=== PATIENT | male | born 1950 | race Caucasian/White ===

== ENCOUNTER 2016-08-18 17:53 | Emergency (ER) | payer OTHER ==
[2016-08-18 20:02] VITALS: BP 121/66
== END 2016-08-18 20:02 | disposition home or self-care (01) ==
LOC: ED 17:53
DX: J03.90 Acute tonsillitis, unspecified (principal); M54.12 Radiculopathy, cervical region; I10 Essential (primary) hypertension; E11.9 Type 2 diabetes mellitus without complications; M25.512 Pain in left shoulder
CPT/HCPCS: J0696

== ENCOUNTER 2020-02-06 14:47 | Emergency (ER) | payer OTHER ==
[~2020-02-06] VITALS: Ht 172.7 cm; Wt 99.8 kg
[2020-02-06 16:39] VITALS: BP 139/81; Ht 172.7 cm; Wt 99.8 kg
== END 2020-02-06 22:00 | disposition home or self-care (01) ==
LOC: ED 14:47
DX: U07.1 COVID-19 (principal); B34.9 Viral infection, unspecified; I10 Essential (primary) hypertension; E11.9 Type 2 diabetes mellitus without complications; E78.00 Pure hypercholesterolemia, unspecified
CPT/HCPCS: 83880; 85378; J1100; U0003